=== PATIENT | male | born 1995 ===

== ENCOUNTER 2018-07-04 13:16 | Emergency (ER) | payer MEDICAID, OTHER ==
[2018-07-04 13:35] VITALS: O2SAT 100
[2018-07-04 15:17] LABS: BASO % 0.7 % (0.0-2.0); EOS # 0.1 K/uL (0.0-0.7); HEMOGLOBIN 15.9 g/dL (12.0-18.0); LYMPH # 1.5 K/uL (1.0-4.3); LYMPH % 24.6 % (20.0-40.0); MEAN CELL VOLUME 95.5 fl (80.0-94.0); MEAN CORPUSCULAR HEMOGLOBIN 32.5 pg (27.0-31.0); MEAN CORPUSCULAR HGB CONC 34.1 g/dL (33.0-37.0); MEAN PLATELET VOLUME 8.6 fl (7.2-11.7); MONO # 0.4 K/uL (0.0-0.8); NEUT # 4.1 K/uL (1.8-7.0); NEUT % 66.7 % (50.0-75.0); NRBC % 0.1 % (0.0-0.0); RBC 4.9 Mil/uL (4.40-5.90); RED CELL DISTRIBUTION WIDTH 13.4 % (11.5-14.5); WHITE BLOOD COUNT 6.1 K/uL (4.8-10.8)
[2018-07-04 15:21] LABS: ALB/GLOB RATIO 1.4 (1.0-2.1); ALBUMIN 4.8 g/dL (3.5-5.0); ALT/SGPT 36 U/L (21-72); AST/SGOT 24 U/L (17-59); BLOOD UREA NITROGEN 17 mg/dl (9-20); GFR NON-AFRICAN AMERICAN > 60
--- NOTE | 2018-07-04 15:25 | ED PDOC ---
HPI: CCC, URI, Sore Throat Time Seen by Provider: 07/04/18 13:34 Chief Complaint (Nursing): ENT Problem Chief Complaint (Provider): ENT Problem History Per: Patient History/Exam Limitations: no limitations Onset/Duration Of Symptoms: Days Additional Complaint(s): Waldemar Butt is a 22 year old male with a past medical history of asthma who is presenting to the ED for evaluation of left sided neck discomfort and mass onset 1 week ago. Patient states that approximately 1 week ago he touched his neck and noted a growth associated some left sided neck discomfort. He states that he also recently had a cough with some nasal congestion but otherwise no sore throat, body aches, fevers, or chills. Patient does note having intermittent night sweats for the past week but further denies any family history of thyroid problems, palpitations, insomnia, or excessive dry skin. He does admit to a 7 pound unintentional weight loss over the past few months. Of note, patient denies taking any medications prior to arrival. PMD: none provided Past Medical History Reviewed: Historical Data, Nursing Documentation, Vital Signs Vital Signs: Last Vital Signs Temp 98.8 F 07/04/18 13:33 Pulse 87 07/04/18 13:33 Resp 18 07/04/18 13:33 BP 136/77 07/04/18 13:33 Pulse Ox 100 07/04/18 13:33 - Medical History PMH: Asthma - Surgical History Surgical History: No Surg Hx - Family History Family History: States: No Known Family Hx - Social History Current smoker - smoking cessation education provided: No Alcohol: None Drugs: Denies - Allergies Allergies/Adverse Reactions: Allergies Allergy/AdvReac Type Severity Reaction Status Date / Time No Known Allergies Allergy Verified 07/04/18 13:33 Review of Systems ROS Statement: Except As Marked, All Systems Reviewed And Found Negative Constitutional: Positive for: Sweats. Negative for: Fever, Chills, Other (body aches ) ENT: Positive for: Nose Congestion. Negative for: Throat Pain Respiratory: Positive for: Cough Musculoskeletal: Positive for: Neck Pain (and mass) Physical Exam - Reviewed Nursing Documentation Reviewed: Yes Vital Signs Reviewed: Yes - Physical Exam Appears: Positive for: Non-toxic, No Acute Distress Head Exam: Positive for: ATRAUMATIC, NORMAL INSPECTION, NORMOCEPHALIC Skin: Positive for: Normal Color, Warm, DRY Neck: Positive for: Painless ROM. Negative for: Normal ((+) Left neck: lateral to cricoid process, patient has firm approx. 2-3 cm mass non mobile not fluctuant no associated erythema swelling or ecchymosis, full ROM of neck ) Cardiovascular/Chest: Positive for: Regular Rate, Rhythm. Negative for: Murmur Respiratory: Positive for: Normal Breath Sounds. Negative for: Respiratory Distress Extremity: Positive for: Normal ROM. Negative for: Deformity, Swelling Neurologic/Psych: Positive for: Alert, Oriented. Negative for: Motor/Sensory Deficits - Laboratory Results Result Diagrams: 07/04/18 14:30 07/04/18 15:20 - ECG O2 Sat by Pulse Oximetry: 100 (RA) Pulse Ox Interpretation: Normal Medical Decision Making Medical Decision Making: Time: 14:30 Plan: --CT Neck with IV Contrast --CMP --TSH --CBC Time: 1607 CT Neck with IV Contrast FINDINGS: NASOPHARYNX: Unremarkable. SUPRAHYOID NECK: Unremarkable oropharynx, oral cavity, parapharyngeal space and retropharyngeal space. INFRAHYOID NECK: Unremarkable larynx, hypopharynx, and supraglottic space. Vocal cords intact. MASS: None. GLANDS: Parotid and submandibular glands unremarkable. Normal size thyroid gland, without nodule. The area of interest, marked on the study corresponds to the inferior aspect of the left submandibular gland. The gland is unremarkable, homogeneous, sy mmetrical in appearance with respect to the right submandibular gland. LYMPH NODES: Normal. No lymphadenopathy. CERVICAL SPINE: No fracture or focal lesion. VASCULAR STRUCTURES: Unremarkable. OTHER FINDINGS: None. IMPRESSION: Unremarkable contrast enhanced CT of the neck. No finding on CT to account for the clinical presentation. Please see report for details. Time: 1722 TSH wnl --Patient is stable for discharge home and referred to clinic. Scribe Attestation: Documented by, Guerita Almanzar acting as a scribe for Maru Ferreira PA-C. Provider Scribe Attestation: All medical record entries made by the Scribe were at my direction and personally dictated by me. I have reviewed the chart and agree that the record accurately reflects my personal performance of the history, physical exam, medical decision making, and the department course for this patient. I have also personally directed, reviewed, and agree with the discharge instructions and disposition. Disposition - Clinical Impression Clinical Impression: Neck discomfort - Patient ED Disposition Is Patient to be Admitted: No Counseled Patient/Family Regarding: Studies Performed, Diagnosis, Rx Given - Disposition Referrals: [facility] [Outside] Disposition: Routine/Home Disposition Time: 17:22 Condition: STABLE Additional Instructions: F/u with primary care physician for ongoing medical care. Return to ER or see your physician if you note increased weight loss unintentionally, if neck discomfort increases or left neck nodule enlarges. Forms: [facility] (Spanish) Print Language: IRISH
[2018-07-04] MEDS ORDERED: Sodium Chloride 0.9% 50 ML IV ONE (15:35)
[2018-07-04] MEDS ORDERED: Iohexol 300 100 ML IJ ONE (15:35)
--- NOTE | 2018-07-04 16:38 | CT ---
Date of service: 07/04/2018 PROCEDURE: CT NECK WITH CONTRAST HISTORY: left sided painless firm nodule, +wt loss The finding is marked on the study for review. Axial series 2/image 57. Coronal series 601/image 31. COMPARISON: None available. TECHNIQUE: CT of the neck with intravenous contrast. Coronal and sagittal reformats generated. Intravenous contrast dose: 90 cc Omnipaque 300 Radiation dose: Total exam DLP = 253.1 mGy-cm. This CT exam was performed using one or more of the following dose reduction techniques: Automated exposure control, adjustment of the mA and/or kV according to patient size, and/or use of iterative reconstruction technique. FINDINGS: NASOPHARYNX: Unremarkable. SUPRAHYOID NECK: Unremarkable oropharynx, oral cavity, parapharyngeal space and retropharyngeal space. INFRAHYOID NECK: Unremarkable larynx, hypopharynx, and supraglottic space. Vocal cords intact. MASS: None. GLANDS: Parotid and submandibular glands unremarkable. Normal size thyroid gland, without nodule. The area of interest, marked on the study corresponds to the inferior aspect of the left submandibular gland. The gland is unremarkable, homogeneous, symmetrical in appearance with respect to the right submandibular gland. LYMPH NODES: Normal. No lymphadenopathy. CERVICAL SPINE: No fracture or focal lesion. VASCULAR STRUCTURES: Unremarkable. OTHER FINDINGS: None. IMPRESSION: Unremarkable contrast enhanced CT of the neck. No finding on CT to account for the clinical presentation. Please see report for details.
[2018-07-04 17:45] VITALS: BP 127/76; PULSE 80; RESP 16; TEMP 98.3
== END 2018-07-04 17:45 | disposition home or self-care (01) ==
LOC: H.ER 13:16
DX: M54.2 Cervicalgia (principal); J45.909 Unspecified asthma, uncomplicated
CPT/HCPCS: 70491; 80053; 84443; 85025; 99283; Q9967

== ENCOUNTER 2018-07-16 14:09 | Emergency (ER) | payer MEDICAID ==
[2018-07-16 15:01] VITALS: RESP 16; O2SAT 98
[2018-07-16] MEDS ORDERED: Sodium Chloride 0.9% 1,000 ML IV STA (15:55)
--- NOTE | 2018-07-16 16:24 | ED PDOC ---
HPI: General Adult Time Seen by Provider: 07/16/18 15:31 Chief Complaint (Nursing): Headache Chief Complaint (Provider): Headache History Per: Patient History/Exam Limitations: no limitations Onset/Duration Of Symptoms: Days (x2) Current Symptoms Are (Timing): Still Present Additional Complaint(s): Waldemar Butt is a 22 year old male with a past medical history of asthma who is presenting to the ED for evaluation of dizziness, trouble focusing, and mild headache onset 2 days ago after eating a marijuana brownie. Patient states that he normally smokes marijuana but decided to try an edible brownie from an unknown source. He states that after eating the edible brownie he lost control of his body and now after 2 days still cant concentrate. He reports that he is worried about the marijuana brownie being laced with some toxin and appears anxious. Patient offers no other medical complaints at this time. PMD: none provided Past Medical History Reviewed: Historical Data, Nursing Documentation, Vital Signs Vital Signs: Last Vital Signs Temp 98.6 F 07/16/18 14:57 Pulse 87 07/16/18 14:57 Resp 16 07/16/18 14:57 BP 124/82 07/16/18 14:57 Pulse Ox 98 07/16/18 14:57 - Medical History PMH: Asthma - Surgical History Surgical History: No Surg Hx - Family History Family History: States: Unknown Family Hx - Social History Current smoker - smoking cessation education provided: No Alcohol: None Drugs: Cannabis - Allergies Allergies/Adverse Reactions: Allergies Allergy/AdvReac Type Severity Reaction Status Date / Time No Known Allergies Allergy Verified 07/16/18 14:57 Review of Systems ROS Statement: Except As Marked, All Systems Reviewed And Found Negative Neurological: Positive for: Headache, Dizziness Physical Exam - Reviewed Nursing Documentation Reviewed: Yes Vital Signs Reviewed: Yes - Physical Exam Appears: Positive for: Non-toxic, No Acute Distress (underlyinganxiety) Head Exam: Positive for: ATRAUMATIC, NORMAL INSPECTION, NORMOCEPHALIC Skin: Positive for: Normal Color, Warm, DRY Eye Exam: Positive for: EOMI, Normal appearance, PERRL ENT: Positive for: Normal ENT Inspection Neck: Positive for: Normal, Painless ROM Cardiovascular/Chest: Positive for: Regular Rate, Rhythm. Negative for: Murmur Respiratory: Positive for: Normal Breath Sounds. Negative for: Respiratory Distress Gastrointestinal/Abdominal: Positive for: Normal Exam, Soft. Negative for: Tenderness Extremity: Positive for: Normal ROM. 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 Negative for: Motor/Sensory Deficits - Laboratory Results Result Diagrams: 07/16/18 16:04 07/16/18 16:04 - ECG O2 Sat by Pulse Oximetry: 98 (RA) Pulse Ox Interpretation: Normal Medical Decision Making Medical Decision Making: Time: 16:04 A/P: substance abuse triggering decreased focus and anxiety --Physical exam unremarkable --Patient precipitating idea that toxin other than marijuana was mixed in edible --He is requesting brain CT --After discussing with him, patient understands why a brain CT is not necessary --IV Fluids, basic labs with drug screen --Reevaluate patient Time: 1810 --Labs unremarkable, 1 Liter of IV fluids given, patient is eating and drinking normally and able to ambulate without deficits. He feels a little dizzy. Given referral to PMD and discussed follow up and not using drugs or alcohol. Time: 1818 --Patient now states that every time he moves his head he feels dizzy and like he is going to pass out. Discussed risks of CT, patient still agrees to CT. Time: 1919 --On further discussion regarding CT per patient's concerns, patient has decided to not get brain CT. Patient has follow up with ENT tomorrow and will discuss the dizziness and neck mass. Patient states that he was recently seen by Dr. Prince at [facility] and will follow up with this doctor next week. Patient instructed to return to ED if symptoms worsen or if patient develops headache, changes in vision, nausea or vomiting. - Scribe Attestation: Documented by Guerita Almanzar, acting as a scribe for Loan Castillo MD. Provider Scribe Attestation: All medical record entries made by the Scribe were at my direction and personally dictated by me. I have reviewed the chart and agree that the record accurately reflects my personal performance of the history, physical exam, medical decision making, and the department course for this patient. I have also personally directed, reviewed, and agree with the discharge instructions and disposition. Disposition - Clinical Impression Clinical Impression: Headache, Dizziness - Disposition Disposition: Routine/Home Disposition Time: 19:20 Condition: STABLE Additional Instructions: Follow up with primary medical doctor at [facility] in one week. Discuss neck mass and dizziness with the ENT tomorrow. Do not use drugs including marijuana. Follow up with primary medical doctor if symptoms worsen or if new symptoms develop such as severe headache, fainting, vomiting, or change in vision. Instructions: Headache, Adult, Dizziness, Nonvertigo, (DC) Forms: [employer] (Jordanian) Print Language: FRENCH
[2018-07-16 16:32] LABS: ALB/GLOB RATIO 1.5 (1.0-2.1); ALBUMIN 4.9 g/dL (3.5-5.0); ALT/SGPT 28 U/L (21-72); AST/SGOT 21 U/L (17-59); BLOOD UREA NITROGEN 8 mg/dl (9-20); CALCIUM 10.1 mg/dL (8.4-10.2); GFR NON-AFRICAN AMERICAN > 60
[2018-07-16 16:33] LABS: BASO % 0.3 % (0.0-2.0); EOS % 0.1 % (0.0-4.0); HEMOGLOBIN 15.3 g/dL (12.0-18.0); LYMPH # 1.2 K/uL (1.0-4.3); LYMPH % 13.6 % (20.0-40.0); MEAN CELL VOLUME 94.7 fl (80.0-94.0); MEAN CORPUSCULAR HEMOGLOBIN 32.3 pg (27.0-31.0); MEAN CORPUSCULAR HGB CONC 34.1 g/dL (33.0-37.0); MEAN PLATELET VOLUME 8.2 fl (7.2-11.7); MONO # 0.3 K/uL (0.0-0.8); MONO % 3.7 % (0.0-10.0); NEUT # 7.2 K/uL (1.8-7.0); NEUT % 82.3 % (50.0-75.0); NRBC % 0.1 % (0.0-0.0); RBC 4.74 Mil/uL (4.40-5.90); RED CELL DISTRIBUTION WIDTH 13.1 % (11.5-14.5); WHITE BLOOD COUNT 8.7 K/uL (4.8-10.8)
[2018-07-16 17:14] LABS: BARBITURATES, UR NEGATIVE (NEGATIVE); BENZODIAZEPINES, UR NEGATIVE (NEGATIVE); OPIATES, UR NEGATIVE (NEGATIVE); PHENCYCLIDINE, UR NEGATIVE (NEGATIVE)
[2018-07-16 19:38] VITALS: BP 131/69; PULSE 95; TEMP 98.8
== END 2018-07-16 19:38 | disposition home or self-care (01) ==
LOC: H.ER 14:09
DX: R51 Headache (principal); R42 Dizziness and giddiness; F12.90 Cannabis use, unspecified, uncomplicated
CPT/HCPCS: 80053; 80324; 80345; 80346; 80349; 80353; 80358; 80361; 83992; 85025; 99285; J7030